=== PATIENT | female | born 1990 | race Two or more races ===

== ENCOUNTER → 2020-06-26 | Outpatient (CLI) | payer SELFPAY | LOC: M LABSMTC 13:58 | PROVIDERS: ATTEND Pediatrics | DX: Z20.822 Contact with and (suspected) exposure to COVID-19 (principal) ==

== ENCOUNTER 2020-07-18 16:05 | Emergency (ER) | payer OTHER ==
[~2020-07-18] VITALS: Ht 167.6 cm; Wt 64.2 kg
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
[2020-07-18 18:56] VITALS: BP 102/70
== END 2020-07-18 19:12 | disposition home or self-care (01) ==
LOC: M ED 16:05
DX: F07.81 Postconcussional syndrome (principal); S13.4XXA Sprain of ligaments of cervical spine, initial encounter; V44.5XXA Car driver injured in collision with heavy transport vehicle or bus in traffic accident, initial encounter; Y92.9 Unspecified place or not applicable; Y93.9 Activity, unspecified; Y99.9 Unspecified external cause status; F17.200 Nicotine dependence, unspecified, uncomplicated

== ENCOUNTER 2021-11-03 22:25 | Emergency (ER) | payer OTHER ==
[~2021-11-03] VITALS: Ht 165.1 cm; Wt 66.9 kg
[2021-11-03] MEDS ORDERED: ALLE180T33 PO (22:34)
[2021-11-03 22:36] VITALS: BP 96/58
== END 2021-11-04 01:58 | disposition left against medical advice (07) ==
LOC: M ED 22:25
DX: Z53.21 Procedure and treatment not carried out due to patient leaving prior to being seen by health care provider (principal)

== ENCOUNTER → 2022-08-14 | Outpatient (CLI) | payer OTHER ==
[~2022-08-14] MED LIST: ALLE180T33 PO
[2022-08-14 16:52] LABS: BASO % 0.2 % (0.0-1.0); EOS % 0.3 % (0.0-3.0); HEMATOCRIT 36.8 % (36.0-47.0); HEMOGLOBIN 11.8 g/dl (12.0-15.5); LYMPH # 1.3 10^3/uL (1.5-5.0); MEAN CORPUSCULAR HEMOGLOBIN 25.9 pg (27.0-33.0); MEAN CORPUSCULAR HGB CONC 32.1 g/dl (32.0-36.5); MEAN CORPUSCULAR VOLUME 80.7 fl (80.0-96.0); MONO # 0.4 10^3/uL (0.0-0.8); MONO % 5.6 % (2.0-8.0); NEUTROPHILS % 74.6 % (36.0-66.0); PLATELET COUNT, AUTOMATED 382 10^3/uL (150-450); RED BLOOD COUNT 4.56 10^6/uL (4.00-5.40); WHITE BLOOD COUNT 6.6 10^3/uL (4.0-10.0)
[2022-08-14 17:04] LABS: C REACTIVE PROTEIN QUANTITATIV < 0.40 MG/DL (<1.0)
[2022-08-14 17:05] LABS: ALBUMIN 3.7 G/DL (3.2-5.2); ALKALINE PHOSPHATASE 71 U/L (46-116); ALT/SGPT 10 U/L (7.0-40); AST/SGOT 10 U/L (<34); BILIRUBIN,TOTAL 0.6 MG/DL (0.3-1.2); BLOOD UREA NITROGEN 8 MG/DL (9-23); CALCIUM LEVEL 9.5 MG/DL (8.5-10.1); CARBON DIOXIDE LEVEL 32 MMOL/L (20-31); CHLORIDE LEVEL 103 MMOL/L (98-107); CREATININE FOR GFR 0.67 MG/DL (0.55-1.30); GLOMERULAR FILTRATION RATE > 60.0 (>60); GLUCOSE, FASTING 86 MG/DL (60-100); POTASSIUM SERUM 5.1 MMOL/L (3.5-5.1); SODIUM LEVEL 140 MMOL/L (136-145); TOTAL PROTEIN 6.8 G/DL (5.7-8.2)
[2022-08-14 17:09] LABS: IMMUNOGLOBULIN E 70.4 IU/ML (0-378)
[2022-08-14 18:01] LABS: ERYTHROCYTE SEDIMENTATION RATE 10 mm/hr (0-20)
== END ==
LOC: M WUC 14:30
PROVIDERS: ATTEND Physician Assistant
DX: L50.9 Urticaria, unspecified (principal)

== ENCOUNTER → 2023-10-06 | Outpatient (CLI) | payer MEDICAID ==
[2023-10-06 17:40] LABS: HEMATOCRIT 35.2 % (36.0-47.0); MEAN CORPUSCULAR HEMOGLOBIN 27.3 pg (27.0-33.0); MEAN CORPUSCULAR HGB CONC 34.1 g/dl (32.0-36.5); PLATELET COUNT, AUTOMATED 225 10^3/uL (150-450); WHITE BLOOD COUNT 5.9 10^3/uL (4.0-10.0)
[2023-10-06 18:45] LABS: HIV 1&2 SCREEN NEGATIVE (NEGATIVE)
[2023-10-06 18:51] LABS: HEPATITIS C VIRUS ABY INDEX < 0.02 INDEX (<0.8)
== END ==
LOC: M PLALAB 14:51
PROVIDERS: ATTEND Advanced Practice Midwife
DX: Z34.91 Encounter for supervision of normal pregnancy, unspecified, first trimester (principal)

== ENCOUNTER 2023-10-27 10:46 | Emergency (ER) | payer MEDICAID ==
[~2023-10-27] VITALS: Ht 165.1 cm; Wt 72.0 kg
[2023-10-27 12:14] LABS: APPEARANCE, URINE CLEAR (CLEAR); BACTERIA, URINE AUTO 1+ (NEGATIVE); BILIRUBIN, URINE AUTO NEGATIVE (NEGATIVE); BLOOD, URINE BLOOD NEGATIVE (NEGATIVE); COLOR, URINE STRAW (YELLOW); GLUCOSE, URINE (UA) AUTO NEGATIVE (NEGATIVE); KETONE, URINE AUTO NEGATIVE (NEGATIVE); LEUKOCYTE ESTERASE, URINE AUTO NEGATIVE (NEGATIVE); NITRITE, URINE AUTO NEGATIVE (NEGATIVE); PROTEIN, URINE AUTO NEGATIVE (NEGATIVE); RBC, URINE AUTO 0 /HPF (0-3); SPECIFIC GRAVITY URINE AUTO 1.008 (1.002-1.035); SQUAMOUS EPITHELIAL CELL UR AU 1 /HPF (0-6); UROBILINOGEN, URINE AUTO 0.2 mg/dL (0.0-2.0); WBC, URINE AUTO 1 /HPF (0-3)
[2023-10-27 12:35] LABS: BASO % 0.5 % (0.0-1.0); EOS # 0.2 10^3/uL (0.0-0.5); EOS % 4.8 % (0.0-3.0); HEMATOCRIT 34.3 % (36.0-47.0); HEMOGLOBIN 12.1 g/dl (12.0-15.5); LYMPH # 0.9 10^3/uL (1.5-5.0); LYMPH % 20.7 % (24.0-44.0); MEAN CORPUSCULAR HEMOGLOBIN 28.3 pg (27.0-33.0); MEAN CORPUSCULAR HGB CONC 35.3 g/dl (32.0-36.5); MEAN CORPUSCULAR VOLUME 80.1 fl (80.0-96.0); MONO # 0.3 10^3/uL (0.0-0.8); MONO % 6.8 % (2.0-8.0); NEUTROPHILS % 67.2 % (36.0-66.0); PLATELET COUNT, AUTOMATED 199 10^3/uL (150-450); RED BLOOD COUNT 4.28 10^6/uL (4.00-5.40); WHITE BLOOD COUNT 4.4 10^3/uL (4.0-10.0)
[2023-10-27] MEDS ORDERED: CEPH500C PO (14:03)
[2023-10-27 14:20] VITALS: BP 100/63; TEMP 98; O2SAT 100
== END 2023-10-27 14:20 | disposition home or self-care (01) ==
LOC: M ED 10:46
DX: O23.41 Unspecified infection of urinary tract in pregnancy, first trimester (principal); Z3A.13 13 weeks gestation of pregnancy; Z79.2 Long term (current) use of antibiotics; Z79.899 Other long term (current) drug therapy

== ENCOUNTER → 2023-12-07 | Outpatient (CLI) | payer OTHER ==
[~2023-12-07] MED LIST changes: +CEPH500C PO
== END ==
LOC: M RAD 07:42
PROVIDERS: ATTEND Midwife
DX: Z34.81 Encounter for supervision of other normal pregnancy, first trimester (principal)

== ENCOUNTER 2025-04-13 07:45 | Emergency (ER) | payer OTHER ==
[~2025-04-13] VITALS: Ht 165.1 cm; Wt 79.5 kg
[2025-04-13] MEDS ORDERED: OMAL75AU SQ (07:58)
[2025-04-13] MEDS ORDERED: OMAL300A SQ (07:58)
[2025-04-13] MEDS ORDERED: MONT10TA97 PO (07:58)
[2025-04-13] MEDS ORDERED: FAMO40TA3 PO (07:58)
[2025-04-13] MEDS ORDERED: HYDR-3364 PO (07:58)
[2025-04-13] MEDS ORDERED: HYDR-3363 (07:58)
[2025-04-13] MEDS ORDERED: EPIN0.3I11 IM (07:58)
[2025-04-13] MEDS: NS 500 ML IV ONE (10:06)
[2025-04-13] MEDS ORDERED: MULT-90 PO (10:46)
[2025-04-13] MEDS ORDERED: HOME MED LIST COMPLETE! XX SCH (10:50)
[2025-04-13] MEDS ORDERED: PRED10TA2 PO (12:05)
[2025-04-13 12:15] VITALS: BP 102/68; TEMP 97.2; O2SAT 98
== END 2025-04-13 12:22 | disposition home or self-care (01) ==
LOC: M ED 07:45
DX: T78.3XXA Angioneurotic edema, initial encounter (principal); K13.0 Diseases of lips; Z79.899 Other long term (current) drug therapy
CPT/HCPCS: 96361; 96374; 99284; J2919